=== PATIENT | male | born 1960 | race Caucasian/White ===

== ENCOUNTER 2018-08-07 21:27 | Emergency (ER) | payer OTHER, SELFPAY ==
[2018-08-07 22:22] VITALS: BP 123/86; PULSE 95; RESP 15; O2SAT 96
[2018-08-07] MEDS: ONDANSETRON 4 MG/2 ML INJ IV (22:23)
[2018-08-07] MEDS: SODIUM CHLORIDE 0.9% 1,000 ML 1000 ML IV (22:23)
--- NOTE | 2018-08-07 22:28 | PC.NURSE ---
patient gave gold jewlery band and change to friend.
[2018-08-07 22:35] LABS: Add Manual Diff / Slide Review NO; Basophils Absolute Auto 0 /uL (0-100); Basophils Percent Auto 0.4 % (0-2); Eosinophils Absolute Auto 100 /uL (0-450); Eosinophils Percent Auto 1.4 % (2-4); Hematocrit 42.5 % (41-53); Hemoglobin 14.6 g/dL (13.5-17.5); Lymphocytes Absolute Auto 1900 /uL (1100-4500); Lymphocytes Percent Auto 28.9 % (25-40); Mean Corpuscular HGB Conc 34.4 % (30-36); Mean Corpuscular Hemoglobin 32.1 PG (26-34); Mean Corpuscular Volume 93.3 fL (80-100); Monocytes Absolute Auto 700 /uL (0-900); Monocytes Percent Auto 11.1 % (3-14); Neutrophils Absolute Auto 3800 /uL (1500-7000); Neutrophils Percent Auto 58.2 % (50-75); Platelet Count 180 X10^3/uL (150-400); Red Blood Cell Count 4.56 X10^6/uL (4.5-5.9); Red Cell Distribution Width 14.2 % (11.6-14.8); White Blood Cell Count 6.6 X10^3/uL (4.5-11.0)
[2018-08-07 22:40] LABS: INR 0.9 (0.9-1.3); Prothrombin Time 10.6 SECONDS (10.1-12.7)
[2018-08-07 22:41] LABS: Creatine Kinase 194 U/L (55-170)
[2018-08-07 22:42] LABS: PTT Partial Thromboplastin Tim 27 SECONDS (26.4-36.2)
[2018-08-07 22:55] LABS: Alanine Aminotransferase 104 IU/L (21-72); Albumin 4.7 g/dL (3.5-5.0); Albumin Globulin Ratio 1.6 (1.0-2.8); Alkaline Phosphatase 71 U/L (38-126); Aspartate Aminotransferase 72 IU/L (17-59); BUN Creatinine Ratio 11.7 (6-22); Bilirubin Total 0.7 mg/dL (0.2-1.3); Bilirubin Unconjugated 0.3 mg/dL (0.0-1.1); Blood Urea Nitrogen 14 mg/dL (9-20); Calcium 10.2 mg/dL (8.4-10.2); Carbon Dioxide 28 mmol/L (22-32); Chloride 101 mmol/L (98-107); Estimated Glomerular Filt Rate > 60.0 mL/min (>60); Ethanol (ETOH) 200 mg/dL; Glucose 158 mg/dL (70-100); HEMOLYSIS 31 (0-50); Lipase 134 U/L (23-300); Magnesium 1.4 mg/dL (1.6-2.3); Phosphorous 4.3 mg/dL (2.5-4.5); Potassium 3.4 mmol/L (3.4-5.1); Sodium 144 mmol/L (137-145); Total Protein 7.7 g/dL (6.3-8.2)
[2018-08-07 22:57] LABS: CKMB % Relative Index 1.1 % (1.5-5.0); Creatine Kinase MB 2.11 ng/mL (<2.37)
[2018-08-07 23:30] VITALS: BP 110/65; PULSE 84; RESP 18; O2SAT 94
[2018-08-08] VITALS (10 sets, daily range): BP systolic 98–139; BP diastolic 52–91; PULSE 79–88; RESP 15–19; O2SAT 92–98
--- NOTE | 2018-08-08 00:04 | ED_ITS ---
HPI - Overdose General Chief Complaint: Toxicology Problem Stated Complaint: ETOH withdrawls and mental health issues Time Seen by Provider: 08/08/18 00:04 Source: patient Mode of arrival: ambulatory Limitations: no limitations History of Present Illness HPI Narrative: The patient has been drinking alcohol heavily on a daily basis in the past several weeks. His left him about 6 weeks ago, he has been daily since then. He is here with a friend who supports him. There was initial concern about suicidal ideation, he has had time to sober and tells me he only wants to sleep at this time. He has absolutely no intent of hurting himself. He would like some help with his alcohol. Prior to 6 weeks ago he was not drinking heavily, but his friend confirms that he has had issues with heavy consumption of alcohol in the past. He has a history of coronary artery disease, and carotid disease. He is having no chest pain, confusion, or focal neurologic deficits. He has abdominal pain. He has been vomiting daily. There is no hematemesis. He has no fever or chills. Related Data Home Medications Medication Instructions Recorded Confirmed carvedilol 3.125 mg PO BID 08/07/18 08/07/18 clopidogrel [Plavix] 75 mg PO DAILY 08/07/18 08/07/18 insulin glargine [Lantus Solostar 10 units SUBCUT DAILY 08/07/18 08/07/18 U-100 Insulin] lisinopril 20 mg PO DAILY 08/07/18 08/07/18 metformin 500 mg PO BID 08/07/18 08/07/18 rosuvastatin 30 mg PO DAILY 08/07/18 08/07/18 Allergies Allergy/AdvReac Type Severity Reaction Status Date / Time No Known Drug Allergies Allergy Verified 08/07/18 21:44 Review of Systems Review of Systems ROS Unobtainable: All systems reviewed & are unremarkable except as noted in HPI and below Constitutional Denies chills, Denies fever(s), Denies lethargy and Denies weakness Eyes Denies change in vision, Denies eye discharge and Denies loss of vision ENT Ears, Nose, Mouth, and Throat: Denies change in voice, Denies neck pain and Denies sore throat Cardiovascular Denies chest pain, Denies irregular heart rhythm, Denies lightheadedness, Denies palpitations, Denies dyspnea, Denies dyspnea on exertion and Denies orthopnea Respiratory Denies cough, Denies dyspnea, Denies dyspnea on exertion and Denies wheezing Gastrointestinal Gastrointestinal: Reports abdominal pain, Denies change in bowel habits, Denies nausea, Reports vomiting and Denies hematemesis Genitourinary Denies difficulty urinating Musculoskeletal Denies back pain and Denies neck pain Integumentary/Breasts Denies pruritus, Denies erythema, Denies rash and Denies wounds Neurologic Denies loss of vision and Denies weakness Endocrine Denies palpitations Allergic/Immunologic Denies wheezing PFSH Medical History Alcoholism (Acute) Coronary artery disease involving autologous vein bypass graft (Acute) Diabetes (Acute) Hyperlipidemia (Acute) Hypertension (Acute) Surgical History Status post carotid surgery (Acute) Social History Smoking Status: Smoker, status unknown alcohol intake: current Social History Smoking Status: Smoker, status unknown alcohol intake: current Exam Initial Vital Signs Initial Vital Signs: Vital Signs Pulse Rate 95 H 08/07/18 22:22 Respiratory Rate 15 08/07/18 22:22 Blood Pressure 123/86 08/07/18 22:22 Pulse Oximetry 96 08/07/18 22:22 Const General: cooperative, well developed, No in distress, No anxious and intoxicated appearing Nutritional Appearance: well nourished Orientation: alert, awake, oriented x3 and not confused HENPA Head: normocephalic and atraumatic Face and sinus: No dry mucous membranes Mouth: oral mucosae normal and moist mucous membranes Throat: posterior oropharynx normal, tonsils normal and uvula midline Eyes General: appearance normal, both eyes and all related structures Alignment and Position: other ( no nystagmus) Eyelids: eyelids normal Conjunctivae: conjunctivae normal Sclera: sclerae normal Pupils: PERRL EOM: EOM intact bilaterally Neck Neck: normal visual inspection, trachea midline, No lymphadenopathy, No midline deformity and No JVD Lymphatic: No lymphedema Other: former bilateral carotid enterectomy. Resp Effort & Inspection: normal respiratory effort, able to speak in complete sentences, no respiratory distress and no use of accessory muscles Auscultation: clear to auscultation bilaterally, no rales, no rhonchi and no wheezes Cardio Rate: regular rate Rhythm: regular rhythm Heart Sounds: no click, no gallops, no murmurs and no rubs Pulses: normal peripheral pulses GI Inspection: non-distended Palpation: soft, no hepatosplenomegaly, No pulsatile mass and tender ( Epigastric discomfort without guarding) Auscultation: normal bowel sounds Back/Spine/Pelvis Back: No CVA tenderness Skin General: no rashes or lesions noted, No jaundice and No petechiae Neuro General: alert, oriented x3, gait normal and no focal motor deficits Speech: speech normal Extrem General: full ROM, no clubbing, cyanosis or edema, no pedal edema and no calf tenderness Psych Appearance: well kempt Mental Status: mental status grossly normal Attitude: cooperative Thought Content: normal and suicidality Judgment: judgment good Course Course Narrative: 03:40 AM. The patient is much more alert. We had additional conversation about his recent separation from his . He has been drinking heavily since then. Prior to then he was caring a job, functioning. He expresses a the aspiration about getting off alcohol. He has diabetes, hyperlipidemia and hypertension. Labs are appropriate, he is medically cleared for detox. He has expressed a desire for detox. He can go to detox on his current prescribed medications Which she is competent to use when sober. Orders Ordered: ED Orders 08/08/18 01:05 Urinalysis and Microscopic Stat Sodium Chloride (Normal Saline 0.9%) 1,000 mls @ 1,000 mls/hr IV BOLUS PRN PRN Reason: Fluid replacement Last Infusion: 08/08/18 01:41 Dose: 0 mls/hr Admin: 08/08/18 00:20 Dose: 1,000 mls/hr Discontinued Medications Sodium Chloride (Normal Saline 0.9%) 1,000 mls @ 1,000 mls/hr IV BOLUS ONE Stop: 08/07/18 22:45 Last Infusion: 08/07/18 23:35 Dose: 0 mls/hr Admin: 08/07/18 22:23 Dose: 1,000 mls/hr Lorazepam (Ativan) 1 mg PO NOW ONE Stop: 08/08/18 03:45 Last Admin: 08/08/18 03:51 Dose: 1 mg Metoclopramide HCl (Reglan) 10 mg IV NOW ONE Stop: 08/08/18 00:37 Last Admin: 08/08/18 00:37 Dose: 10 mg Ondansetron HCl (Zofran) 4 mg IV NOW ONE Stop: 08/07/18 21:48 Last Admin: 08/07/18 22:23 Dose: 4 mg Pantoprazole Sodium (Protonix) 40 mg IV NOW ONE Stop: 08/08/18 00:13 Last Admin: 08/08/18 00:20 Dose: 40 mg Vital Signs - 8 hr 08/08/18 00:04 08/08/18 00:31 08/08/18 01:42 Pulse Rate 83 85 79 Respiratory Rate 16 18 15 Blood Pressure [Left Arm] 113/63 128/64 106/68 Pulse Oximetry 93 97 95 08/08/18 03:30 08/08/18 04:30 08/08/18 05:00 Pulse Rate 87 85 83 Respiratory Rate 19 19 16 Blood Pressure [Left Arm] 139/91 H 117/62 104/66 Pulse Oximetry 95 92 94 08/08/18 05:30 08/08/18 05:46 08/08/18 06:45 Pulse Rate 87 82 82 Respiratory Rate 16 15 19 Blood Pressure [Left Arm] 98/52 L 101/64 111/63 Pulse Oximetry 94 95 98 MDM - Overdose Lab Data Result diagrams: 08/07/18 22:20 08/07/18 22:20 Lab Results 08/07/18 08/07/18 08/07/18 Range/Units 22:20 22:20 22:20 WBC 6.6 (4.5-11.0) X10^3/uL RBC 4.56 (4.5-5.9) X10^6/uL Hgb 14.6 (13.5-17.5) g/dL Hct 42.5 (41-53) % MCV 93.3 (80-100) fL MCH 32.1 (26-34) PG MCHC 34.4 (30-36) % RDW 14.2 (11.6-14.8) % Plt Count 180 (150-400) X10^3/uL Neut % (Auto) 58.2 (50-75) % Lymph % (Auto) 28.9 (25-40) % [place] % (Auto) 11.1 (3-14) % Eos % (Auto) 1.4 L (2-4) % Baso % (Auto) 0.4 (0-2) % Neut # (Auto) 3800 (4472-4631) /uL Lymph # (Auto) 1900 (6023-9338) /uL [place] # (Auto) 700 (0-900) /uL Eos # (Auto) 100 (0-450) /uL Baso # (Auto) 0 (0-100) /uL PT 10.6 (10.1-12.7) SECONDS INR 0.9 (0.9-1.3) APTT 27 (26.4-36.2) SECONDS Sodium 144 (137-145) mmol/L Potassium 3.4 (3.4-5.1) mmol/L Chloride 101 (98-107) mmol/L Carbon Dioxide 28 (22-32) mmol/L BUN 14 (9-20) mg/dL Creatinine 1.20 (0.66-1.25) mg/dL Estimated GFR > 60.0 (>60) mL/min BUN/Creatinine Ratio 11.7 (6-22) Glucose 158 H (70-100) mg/dL Calcium 10.2 (8.4-10.2) mg/dL Phosphorus 4.3 (2.5-4.5) mg/dL Magnesium 1.4 L (1.6-2.3) mg/dL Total Bilirubin 0.7 (0.2-1.3) mg/dL Conjugated Bilirubin 0.0 (0.0-0.3) md/dL Unconjugated Bilirubin 0.3 (0.0-1.1) mg/dL AST 72 H (17-59) IU/L ALT 104 H (21-72) IU/L Alkaline Phosphatase 71 (38-126) U/L Total Creatine Kinase (55-170) U/L CK-MB (CK-2) (<2.37) ng/mL CK-MB (CK-2) Rel Index (1.5-5.0) % Troponin I (0.01-0.034) ng/mL Total Protein 7.7 (6.3-8.2) g/dL Albumin 4.7 (3.5-5.0) g/dL Globulin 3.0 (1.7-4.1) g/dL Albumin/Globulin Ratio 1.6 (1.0-2.8) Lipase 134 (23-300) U/L Urine Color Urine Appearance Urine pH (4.5-8.0) Ur Specific [place] (1.000-1.035) Urine Protein (Negative) Urine Glucose (UA) (Negative) g/dL Urine Ketones (NEGATIVE) Urine Occult Blood (Negative) Urine Nitrate (Negative) Urine Bilirubin (NEGATIVE) Urine Urobilinogen (0.2) E.U./dL Ur Leukocyte Esterase (NEGATIVE) Urine RBC (0-5/HPF) Urine WBC (0-5/HPF) Ur Squamous Epith Cells Urine Bacteria (None) Ur Culture Indicated? Urine Opiates Screen (Negative) Ur Oxycodone Screen (Negative) Urine Methadone Screen (Negative) Ur Barbiturates Screen (Negative) U Tricyclic Antidepress (Negative) Ur Phencyclidine Scrn (Negative) Ur Amphetamines Screen (Negative) U Methamphetamines Scrn (Negative) Ur MDMA Scrn (Ecstasy) (Negative) U Benzodiazepines Scrn (Negative) Urine Cocaine Screen (Negative) U Marijuana (THC) Screen (Negative) Ethyl Alcohol 200 mg/dL 08/07/18 08/08/18 08/08/18 Range/Units 22:20 01:05 01:05 WBC (4.5-11.0) X10^3/uL RBC (4.5-5.9) X10^6/uL Hgb (13.5-17.5) g/dL Hct (41-53) % MCV (80-100) fL MCH (26-34) PG MCHC (30-36) % RDW (11.6-14.8) % Plt Count (150-400) X10^3/uL Neut % (Auto) (50-75) % Lymph % (Auto) (25-40) % [place] % (Auto) (3-14) % Eos % (Auto) (2-4) % Baso % (Auto) (0-2) % Neut # (Auto) (1324-7156) /uL Lymph # (Auto) (6235-1623) /uL [place] # (Auto) (0-900) /uL Eos # (Auto) (0-450) /uL Baso # (Auto) (0-100) /uL PT (10.1-12.7) SECONDS INR (0.9-1.3) APTT (26.4-36.2) SECONDS Sodium (137-145) mmol/L Potassium (3.4-5.1) mmol/L Chloride (98-107) mmol/L Carbon Dioxide (22-32) mmol/L BUN (9-20) mg/dL Creatinine (0.66-1.25) mg/dL Estimated GFR (>60) mL/min BUN/Creatinine Ratio (6-22) Glucose (70-100) mg/dL Calcium (8.4-10.2) mg/dL Phosphorus (2.5-4.5) mg/dL Magnesium (1.6-2.3) mg/dL Total Bilirubin (0.2-1.3) mg/dL Conjugated Bilirubin (0.0-0.3) md/dL Unconjugated Bilirubin (0.0-1.1) mg/dL AST (17-59) IU/L ALT (21-72) IU/L Alkaline Phosphatase (38-126) U/L Total Creatine Kinase 194 H (55-170) U/L CK-MB (CK-2) 2.11 (<2.37) ng/mL CK-MB (CK-2) Rel Index 1.1 L (1.5-5.0) % Troponin I 0.020 (0.01-0.034) ng/mL Total Protein (6.3-8.2) g/dL Albumin (3.5-5.0) g/dL Globulin (1.7-4.1) g/dL Albumin/Globulin Ratio (1.0-2.8) Lipase (23-300) U/L Urine Color Yellow Urine Appearance Clear Urine pH 5.0 (4.5-8.0) Ur Specific [place] 1.025 (1.000-1.035) Urine Protein Trace H (Negative) Urine Glucose (UA) Negative (Negative) g/dL Urine Ketones Negative (NEGATIVE) Urine Occult Blood Trace-lysed (Negative) Urine Nitrate Negative (Negative) Urine Bilirubin Negative (NEGATIVE) Urine Urobilinogen 0.2 (0.2) E.U./dL Ur Leukocyte Esterase Negative (NEGATIVE) Urine RBC 0-1/hpf (0-5/HPF) Urine WBC None seen (0-5/HPF) Ur Squamous Epith Cells 0-1 /hpf Urine Bacteria None seen (None) Ur Culture Indicated? Cult not indicated Urine Opiates Screen Negative (Negative) Ur Oxycodone Screen Negative (Negative) Urine Methadone Screen Negative (Negative) Ur Barbiturates Screen Negative (Negative) U Tricyclic Antidepress Negative (Negative) Ur Phencyclidine Scrn Negative (Negative) Ur Amphetamines Screen Negative (Negative) U Methamphetamines Scrn Negative (Negative) Ur MDMA Scrn (Ecstasy) Negative (Negative) U Benzodiazepines Scrn Positive H (Negative) Urine Cocaine Screen Negative (Negative) U Marijuana (THC) Screen Positive H (Negative) Ethyl Alcohol mg/dL Point of Care Testing Glucose POC 167 ECG Data Attestation: I personally reviewed and interpreted this ECG as follows: ( Normal sinus rhythm rate 99 bpm. LV enlargement. Inferior Q-waves, probable old LA. No acute ST or T-wave changes. No acute findings.) Discharge Plan Departure Patient Disposition: Home Clinical Impression: Acute alcoholism Instructions: DI for Alcohol Abuse Activity Restrictions/Additional Instructions: [address] [address] XRay Report Signed Patient: Alex Hendrix CMR#: [id number] : 1Acct:[id number] Age/Sex: 66 / MDate of Service: 08/07/18 Loc: ED Accession Number: [id number] Procedure: XR hand LT min 3V Ordering Provider: Marline Quan D.O. PROCEDURE: XR HAND LT MIN 3V INDICATIONS: LEFT HAND INJURY TECHNIQUE: 3 views of the hand(s) acquired. COMPARISON: None. FINDINGS: Bones: There is an ill-defined lucency noted near the base of the middle third phalanx. It is seen only on one view. Carpal bones are normally aligned. No suspicious bony lesions. Diffuse degenerative changes are present. Soft tissues: No suspicious soft tissue calcifications. Follow up with detox as we discussed. If there is in appropriate position for you, we will assist in her transition today. The necessary medications will be prescribed. If there is no detox bed available, you will be discharged from the ER. If this occurs, follow up with her doctor to help arrange entry into a detox center. Return to the ER as necessary. Prescriptions: No Action metformin 500 mg tablet 500 mg PO BID RF: 0 lisinopril 20 mg tablet 20 mg PO DAILY RF: 0 clopidogrel [Plavix] 75 mg Tablet 75 mg PO DAILY RF: 0 carvedilol 3.125 mg tablet 3.125 mg PO BID RF: 0 rosuvastatin 40 mg tablet 30 mg PO DAILY RF: 0 Lantus Solostar U-100 Insulin 100 unit/mL (3 mL) insulin pen 10 units subcut DAILY RF: 0
[2018-08-08] MEDS: PANTOPRAZOLE 40 MG VIAL IV (00:20)
[2018-08-08] MEDS: SODIUM CHLORIDE 0.9% 1,000 ML 1000 ML IV (00:20)
[2018-08-08] MEDS: METOCLOPRAMIDE 10 MG/2 ML INJ IV (00:37)
[2018-08-08 01:20] LABS: Urine Amphetamines Negative (Negative); Urine Barbiturates Negative (Negative); Urine Benzodiazepines Positive (Negative); Urine Cocaine Negative (Negative); Urine MDMA Negative (Negative); Urine Methadone Negative (Negative); Urine Methamphetamines Negative (Negative); Urine Morphine/Opi cutoff 2000 Negative (Negative); Urine Oxycodone Negative (Negative); Urine Phencyclidine Negative (Negative); Urine Tetrahydrocannabinol Positive (Negative); Urine Tricyclic Antidepressant Negative (Negative)
[2018-08-08 01:36] LABS: Bacteria Urine None Seen; WBC Urine None Seen (0-5/HPF)
[2018-08-08 01:37] LABS: Appearance Urine UA CLEAR; Bilirubin Urine UA NEGATIVE (NEGATIVE); Color Urine UA YELLOW; Glucose Urine UA NEGATIVE (Negative); Ketones Urine UA NEGATIVE (NEGATIVE); Leukocyte Esterase Urine UA NEGATIVE (NEGATIVE); Nitrite Urine UA NEGATIVE (Negative); Occult Blood Urine UA TRACE-LYSED (Negative); Protein Urine UA TRACE (Negative); Specific Gravity Urine UA 1.025 (1.000-1.035); Urobilinogen Urine UA 0.2 E.U./dL (0.2)
[2018-08-08 01:47] LABS: Culture Indicated Urine Cult Not Indicated; RBC Urine 0-1/HPF (0-5/HPF); Squamous Epithelial Cell Urine 0-1 /HPF
--- NOTE | 2018-08-08 02:26 | PC.NURSE ---
per Dr. Her patient could have some crackers. patient sitting up in bed eating crackers. no new orders at this time.
--- NOTE | 2018-08-08 03:43 | PC.NURSE ---
patient given (2) 118 oz orange juices, a fruit cup, string cheese and egg salad sandwich. provider ok with patient to eat and drink. no new orders at this time.
[2018-08-08] MEDS: LORazepam 0.5 MG TABLET 1 MG PO (03:51)
== END 2018-08-08 08:23 | disposition home or self-care (01) ==
PROVIDERS: Emergency Provider Emergency Medicine
DX: F10.20 Alcohol dependence, uncomplicated (principal)
CPT/HCPCS: 36591; 80053; 80076; 80305; 80320; 81001; 82550; 82553; 82962; 83690; 83735; 84100; 84484; 85025; 85610; 85730; 93005; 96361; 96374; 96375; 99284; 99285; C9113; J2405; J2765